=== PATIENT | female | born 1950 | race American Indian/Alaskan Native ===

== ENCOUNTER 2017-02-12 08:10 | Outpatient (CLI) | payer BC ==
--- NOTE | 2017-02-12 09:44 | Mammography Report ---
Screening mammogram: Postreduction surgery. Routine views compared to her prior exams dating back to 2014. There are stable bilateral uncal asymmetry is as well as fibroglandular distortion from prior reduction surgery. The breast pattern otherwise is generally fatty replaced and unremarkable. The findings are unchanged compared to prior exams. No currently suspicious findings. CAD used. Impression: Stable postreduction changes. Recommendation: Annual mammogram followup. BI-RADS CATEGORY: 2 = Benign ACR BI-RADS MAMMOGRAPHIC CODES: 0 = Needs additional imaging evaluation; 1 = Negative; 2 = Benign; 3 = Probably benign; 4 = Suspicious; 5 = Malignant; 6 = Known biopsy-proven malignancy COMMENT: 1. Dense breast tissue, i.e., adenosis, fibrocystic changes, etc., may obscure an underlying neoplasm. 2. Approximately 10% of cancers are not detected with mammography. 3. A negative mammography report should not delay biopsy if a clinically suspicious mass is present.
== END 2017-02-12 08:11 | disposition home or self-care (01) ==
LOC: SPVWC 08:10
PROVIDERS: ATTEND Internal Medicine
DX: Z12.31 Encounter for screening mammogram for malignant neoplasm of breast (principal)
CPT/HCPCS: 77067; G0202

== ENCOUNTER 2017-08-13 14:28 | Outpatient (CLI) | payer BC ==
--- NOTE | 2017-08-13 15:42 | Ultrasound Report ---
RENAL ULTRASOUND: 08/13/17 CLINICAL: Chronic renal disease. FINDINGS: High resolution ultrasound demonstrated normal nondilated renal collecting systems. Moderate echogenicity of the kidneys. Moderate bilateral renal parenchymal scarring and thinning. No renal mass, cyst or calculus. The right kidney measures 8.1 x 4.2 x 3.8-cm. The renal parenchyma measures 1.2-cm in thickness. The left kidney measures 9.1 x 4.5 x 3.9-cm. The renal parenchyma measures 1.7-cm in thickness. A moderately distended urinary bladder with an irregular shape. IMPRESSION: Bilateral medical renal disease with relatively small kidneys. No hydronephrosis.
== END 2017-08-13 14:29 | disposition home or self-care (01) ==
LOC: SPVWC 14:28
PROVIDERS: ATTEND Internal Medicine
DX: N28.9 Disorder of kidney and ureter, unspecified (principal); N32.89 Other specified disorders of bladder
CPT/HCPCS: 76770